=== PATIENT | female | born 1980 | race Caucasian/White ===

== ENCOUNTER 2019-06-27 00:49 | Inpatient (IN) | payer MEDICAID ==
[~2019-06-27] VITALS: Ht 144.8 cm; Wt 58.6 kg
[~2019-06-27 00:49] MED LIST: CLOP75TA35 PO; HYDR-4383 PO
--- NOTE | 2019-06-27 01:53 | NUR ---
PATIENT STATING THAT SHE WAS SEEN AT [facility] IN [facility] FOR ABCESS ON POSTERIOR OF LEFT THIGH, AND RECEIVED ABX AT THAT TIME WHICH SHE FINISHED "LAST NIGHT" THEN LATER STATED THAT THE WOUND WAS NOT TREATED BY ANYBODY AND THAT THE ABX CAME FROM A FRIEND. "A BLUE ONE AND A GREEN ONE"
[2019-06-27 02:10] LABS: CLARITY,URINE SLIGHTLY CLOUDY (Clear); COLOR,URINE YELLOW (Yellow); GLUCOSE, URINE NEGATIVE (Neg); KETONES,URINE NEGATIVE (Neg); LEUKOCYTE ESTERASE ,URINE NEGATIVE (Neg); NITRITES, URINE NEGATIVE (Neg); OCCULT BLOOD,URINE MODERATE (Neg); PROTEIN,URINE 100 mg/dl (Neg); UROBILINOGEN,URINE 0.2 E.U/dL (0.2-1.0)
[2019-06-27 02:11] LABS: URINE HCG NEGATIVE (NEG)
[2019-06-27 02:17] LABS: ALANINE AMINOTRANSFERASE 31 U/L (12-78); ALBUMIN 3.2 G/DL (3.4-5.0); ALBUMIN/GLOBULIN RATIO 0.6 (1.1-1.5); ALKALINE PHOSPHATASE 120 IU/L (46-116); ANION GAP 7 (8-16); ASPARTATE AMINO TRANSFERASE 52 U/L (10-37); BILIRUBIN,TOTAL 0.4 MG/DL (0.1-1.0); BLOOD UREA NITROGEN 7 MG/DL (7-18); BUN/CREATININE RATIO 9.3 (6.6-38.0); CALCIUM 8.2 MG/DL (8.5-10.1); CHLORIDE 102 MMOL/L (99-107); CREATININE 0.75 MG/DL (0.40-0.90); GLUCOSE 106 MG/DL (70-104); SODIUM 135 MMOL/L (135-145); TOTAL CARBON DIOXIDE 25.6 MMOL/L (24-32); TOTAL PROTEIN 8.5 G/DL (6.4-8.2); eGFR 87 ML/MIN
[2019-06-27 02:22] LABS: UA COLLECTION TYPE CLN CATCH MIDSTREAM
[2019-06-27] MEDS ORDERED: potassium Cl 20 mEq SR tablet PO STA (02:24)
[2019-06-27 02:25] LABS: BACTERIA,URINE NONE SEEN /HPF (Neg); RBC,URINE 0-2 /HPF (0-2); SQUAMOUS EPITHELIAL CELL,UR MODERATE /LPF (FEW); WBC,URINE 0-4 /HPF (0-4)
[2019-06-27 02:37] LABS: LIPASE 3203 U/L (73-393)
[2019-06-27] MEDS ORDERED: ondansetron/PF 4mg/2ml inj IV PRN ×2 (03:05→04:20)
[2019-06-27] MEDS ORDERED: TETanus/Pertussis (Acell)/Diphther VAC/PF (Tdap-Adult) 0.5ml syringe IMVAC ONE (03:05)
[2019-06-27] MEDS ORDERED: normal saline 1000ML IV soln IVB ONE (03:05)
[2019-06-27] MEDS: morphine 4 MG/ML inj SYRINge IV PRN ×2 (03:25→05:00)
[2019-06-27 03:26] LABS: CHOL/HDL RATIO 2.6 (0.00-4.99); CHOLESTEROL 218 MG/DL (0-200); ETHANOL 0.016 GM/DL (0.0-0.010); HDL CHOLESTEROL 85 MG/DL (35-60); LDL CHOLESTEROL 115 MG/DL (50-100); TRIGLYCERIDES 73 MG/DL (20-135)
[2019-06-27 03:39] LABS: BASOPHILS # (AUTO) 0.1 X10'3 (0-0.2); BASOPHILS % (AUTO) 0.7 % (0-1); EOSINOPHILS # (AUTO) 0.3 X10'3 (0-0.9); EOSINOPHILS % (AUTO) 1.6 % (0-6); HEMATOCRIT 40.9 % (35.0-45.0); HEMOGLOBIN 13.8 g/dl (12.0-16.0); LYMPHOCYTES # (AUTO) 1.7 X10'3 (1.1-4.8); LYMPHOCYTES % (AUTO) 10.7 % (21-51); MEAN CORPUSCULAR HEMOGLOBIN 34.7 PG (27.0-31.0); MEAN CORPUSCULAR HGB CONC 33.6 g/dL (33.0-36.5); MEAN PLATELET VOLUME 6.6 FL (7.4-10.4); MONOCYTES # (AUTO) 1.6 X10'3 (0-0.9); MONOCYTES % (AUTO) 10.3 % (2-12); NEUTROPHILS # (AUTO) 12.1 X10'3 (1.8-7.7); NEUTROPHILS % (AUTO) 76.7 % (42-75); PLATELET COUNT 375 X10'3 (140-440); RED BLOOD COUNT 3.97 X10'6 (4.20-5.60); RED CELL DISTRIBUTION WIDTH 14.5 % (11.5-14.5); WHITE BLOOD COUNT 15.8 X10'3 (4.5-11.0)
[2019-06-27] MEDS ORDERED: vancomycin/NS 1 GM ADD-VANTAGE 250 ML IV ONE (03:45)
[2019-06-27] MEDS ORDERED: CefTRIAXone 2gm/D5W 50ml 50 ML IV ONE (03:45)
[2019-06-27] MEDS ORDERED: LISI-600 PO (04:07)
[2019-06-27] MEDS ORDERED: ASPI-1265 PO (04:07)
[2019-06-27] MEDS ORDERED: magnesium Cl slow-release 64mg tablet PO PRN (04:20)
[2019-06-27] MEDS ORDERED: potassium Cl 20 mEq SR tablet PO PRN ×2 (04:20)
[2019-06-27] MEDS ORDERED: potassium CL 10mEq/100ml bag 100 ML IV PRN (04:20)
[2019-06-27] MEDS ORDERED: morphine 2 MG/ML inj. syringe IV PRN (04:20)
[2019-06-27] MEDS ORDERED: magnesium 4gm in 100ml NS 100 ML IV PRN (04:20)
[2019-06-27] MEDS ORDERED: magnesium 2GM in 50ml NS 50 ML IV PRN (04:20)
[2019-06-27] MEDS: normal saline 1000ml 1,000 ML IV SCH ×2 (04:29→20:59)
[2019-06-27] MEDS ORDERED: LORazepam 2 mg/ml vial IV PRN (05:25)
[2019-06-27] MEDS ORDERED: haloperidol lactate 5mg/ml inj IM PRN (05:25)
[2019-06-27] MEDS ORDERED: thiamine inj. 100 MG in normal saline 100ml IV soln 100 ML IV ONE (05:25)
[2019-06-27] MEDS ORDERED: haloperidol 5mg tablet PO PRN (05:25)
--- NOTE | 2019-06-27 06:55 | NUR ---
Received report from ZHENG Berrios in ED. patient to arrive to room 354A
--- NOTE | 2019-06-27 07:09 | NUR ---
TC REPORT TO FLOOR AND TAKEN TO INPATIENT ROOM PER JENN.
[2019-06-27 08:00] VITALS: BP 162/111
[2019-06-27] MEDS: K and/or MAG REPLACEMENT MC SCH ×2 (08:00→22:08)
[2019-06-27] MEDS: enoxaparin 40mg/0.4ml syringe SQ SCH (08:02)
[2019-06-27] MEDS: clopidogrel 75mg tablet PO SCH (08:02)
[2019-06-27] MEDS: aspirin 81mg tab.chew PO SCH (08:02)
[2019-06-27] MEDS: lisinopril 20mg tablet PO SCH (08:02)
[2019-06-27] MEDS: folic acid 1mg/0.2ml inj IV SCH (08:17)
--- NOTE | 2019-06-27 09:30 | NUR ---
Paged Dr. Alfred regarding pt's high BP and high pain. morphine given, zestril given for pain and BP now 162/111 and HR 104. notified. Orders received.
--- NOTE | 2019-06-27 10:08 | NUR ---
MESSAGE: [facility]. PT IN 354a Mendy Marcelino already had morphine-crying out in pain. anything more for pain? thx
[2019-06-27] MEDS: cloNIDine 0.1 mg tablet PO PRN ×2 (10:14→23:14)
[2019-06-27 10:30] VITALS: BP 157/112
[2019-06-27] MEDS: HYDROmorphone 1 mg/ml syringe IV PRN ×3 (10:32→20:34)
[2019-06-27] MEDS: MVI, adult No.4 with vit. K 10 ML in dextrose 5% water 500ml 500 ML IV SCH ×2 (10:32)
--- NOTE | 2019-06-27 11:20 | NUR ---
Paged Dr. Price regarding this patient's blood pressure. BP still high at 174/100. awaiting further orders.
[2019-06-27] MEDS: potassium CL 10mEq/100ml bag 100 ML IV PRN ×3 (11:38→17:28)
[2019-06-27 12:00] VITALS: BP 154/110
[2019-06-27] MEDS ORDERED: cloNIDine 0.1 MG/24 HOUR patch (7 day patch) TD SCH (12:15)
--- NOTE | 2019-06-27 15:46 | NUR ---
PAGER ID: [phone] MESSAGE: [facility]. Pt Mendy Marcelino-clonidine patch placed, pain medication Dilaudid given and pt's BP now at 157/11 thank you
[2019-06-27] MEDS: VANCOMYCIN 750MG IV in NS 250 ML IV SCH (17:28)
[2019-06-27] MEDS ORDERED: naloxone 0.4 mg/ml inj ONE (18:17)
--- NOTE | 2019-06-27 18:30 | NUR ---
Upon entering pt's room to give bedside report with Tiera Mott RN, found patient lying on R side on the floor, residential under bed unresponsive. Pt's neighbor in [facility] states that she saw the patient in 354A was "standing up and fell flat to the floor, after she heard patient with pill bottle." Pt was moved back into bed and rapid response called. vitals were taken as follows: RR 8, HR 112, BP 172/115, Oxygen saturation 99% on room air. Dr. Alfred notified. Pt's respirations decreased and pt diaphoretic. Narcan given. Patient alert, fighting and thrashing while labor delivery specialist attempting to draw labs. O2 saturation still at 99%. Patient calming down now and states she does not remember falling. Will continue to monitor closely at pt's bedside.
[2019-06-27] MEDS ORDERED: LIDOcaine 2% 10ml TOPICAL JELLY (Urojet) TP ONE (18:40)
--- NOTE | 2019-06-27 18:40 | NUR ---
consulting technical manager here to take the pt for stat head CT scan. Assisted patient into the wheelchair for scan. Pt stable at this time.
[2019-06-27 18:41] LABS: ABG BASE EXCESS -13.1 mmol/L (-2.0-3.0); ABG HCO3 12.5 mmol/L (22.0-26.0); ABG OXYGEN SATURATION 98.1 % (95-98); ABG PCO2 (T) 28.8 mmHg (35.0-45.0); ABG PH (T) 7.255 (7.350-7.450); ABG PO2 (T) 123.5 mmHg (83-108); ALLEN'S TEST POSITIVE; FCOHb 1.2 % (0.5-1.5); FLOW 2 L/min; FMetHb 0.1 % (0.3-1.12); FO2Hb 96.8 % (94-100); PATIENT TEMPERATURE 36.8
[2019-06-27] MEDS ORDERED: sodium bicarbonate (8.4%) inj. 50 MEQ in dextrose 5%-water 1,000 ML IV ONE (18:55)
--- NOTE | 2019-06-27 19:22 | NUR ---
Report given to ZHENG Anderson in PCU. All questions answered and pt to go to room 3024A directly after CT scan.
[2019-06-27 20:00] LABS: BASOPHILS # (AUTO) 0.1 X10'3 (0-0.2); BASOPHILS % (AUTO) 0.3 % (0-1); EOSINOPHILS # (AUTO) 0.1 X10'3 (0-0.9); EOSINOPHILS % (AUTO) 0.4 % (0-6); HEMATOCRIT 41.4 % (35.0-45.0); HEMOGLOBIN 13.8 g/dl (12.0-16.0); LYMPHOCYTES # (AUTO) 0.8 X10'3 (1.1-4.8); LYMPHOCYTES % (AUTO) 4.1 % (21-51); MEAN CORPUSCULAR HEMOGLOBIN 34.3 PG (27.0-31.0); MEAN CORPUSCULAR HGB CONC 33.3 g/dL (33.0-36.5); MONOCYTES # (AUTO) 2.1 X10'3 (0-0.9); MONOCYTES % (AUTO) 10.6 % (2-12); NEUTROPHILS # (AUTO) 16.9 X10'3 (1.8-7.7); NEUTROPHILS % (AUTO) 84.6 % (42-75); PLATELET COUNT 365 X10'3 (140-440); RED BLOOD COUNT 4.02 X10'6 (4.20-5.60); RED CELL DISTRIBUTION WIDTH 14.5 % (11.5-14.5)
[2019-06-27 20:16] LABS: ANION GAP 7 (8-16); BLOOD UREA NITROGEN 8 MG/DL (7-18); BUN/CREATININE RATIO 9.8 (6.6-38.0); CALCIUM 8.7 MG/DL (8.5-10.1); CHLORIDE 103 MMOL/L (99-107); CREATININE 0.82 MG/DL (0.40-0.90); GLUCOSE 94 MG/DL (70-104); SODIUM 134 MMOL/L (135-145); TOTAL CARBON DIOXIDE 24.2 MMOL/L (24-32); TROPONIN I 0.18 NG/ML (0.0-0.05); eGFR 79 ML/MIN
[2019-06-27 20:19] LABS: POTASSIUM 4.5 MMOL/L (3.5-5.1)
--- NOTE | 2019-06-27 20:50 | NUR ---
Patient in room PCU 3023A. I have received report from John CALZADA and had the opportunity to ask questions and assume patient care.
[2019-06-27] MEDS: nicotine 21mg patch - 24 hr TD SCH (21:55)
[2019-06-27 22:00] VITALS: BP 176/108
[2019-06-27 23:26] VITALS: BP 160/94
[2019-06-27] MEDS ORDERED: phenobarbital inj 130 MG in normal saline 100ml IV soln 99 ML IV ONE (23:30)
[2019-06-27] MEDS: Levetiracetam-NS 500mg/100ml 100 ML IV SCH (23:57)
--- NOTE | 2019-06-28 00:11 | NUR ---
3023A - Mendy Chari - Pt had new onset SZ, pt nonresponsive, resistant to suction was foaming, stopped seizing [id number] Matti RN Discussed with Dr. Cabezas patient case. Pt remains intermittently rousable but quickly falls back asleep. Vital signs stable. Pt resistant to suction, pt doesn't follow directions, unable to assess mouth. Minimal bloody drainage in mouth when able to suction. New ordered placed by Dr. Cabezas. Administered Ativan 2mg, Phenobarb and Keppra gtt started. Discussed with Dr. Cabezas changing prn ativan to scheduled for future doses. Will continue to monitor.
[2019-06-28] MEDS: normal saline 1000ml 1,000 ML IV SCH ×2 (00:57→14:00)
[2019-06-28 02:00] VITALS: BP 154/93
[2019-06-28] MEDS: LORazepam 2 mg/ml vial IV SCH ×6 (03:11→20:13)
[2019-06-28] MEDS: HYDROmorphone 1 mg/ml syringe IV PRN ×3 (03:15→17:56)
--- NOTE | 2019-06-28 03:25 | NUR ---
Pt brow furrowed, increased restlessness, attempting to pull at lines and get up out of bed, caressing abdomen and forehead intermittently. Administered dilaudid prn. Will continue to monitor.
[2019-06-28 05:33] LABS: BASOPHILS # (AUTO) 0.1 X10'3 (0-0.2); BASOPHILS % (AUTO) 0.3 % (0-1); EOSINOPHILS # (AUTO) 0.1 X10'3 (0-0.9); EOSINOPHILS % (AUTO) 0.3 % (0-6); HEMATOCRIT 38.6 % (35.0-45.0); HEMOGLOBIN 12.9 g/dl (12.0-16.0); LYMPHOCYTES # (AUTO) 0.9 X10'3 (1.1-4.8); LYMPHOCYTES % (AUTO) 4.7 % (21-51); MEAN CORPUSCULAR HEMOGLOBIN 34.2 PG (27.0-31.0); MEAN CORPUSCULAR HGB CONC 33.4 g/dL (33.0-36.5); MEAN CORPUSCULAR VOLUME 102.3 FL (78-98); MEAN PLATELET VOLUME 7.1 FL (7.4-10.4); MONOCYTES # (AUTO) 1.9 X10'3 (0-0.9); MONOCYTES % (AUTO) 10.3 % (2-12); NEUTROPHILS # (AUTO) 15.7 X10'3 (1.8-7.7); NEUTROPHILS % (AUTO) 84.4 % (42-75); PLATELET COUNT 300 X10'3 (140-440); RED BLOOD COUNT 3.77 X10'6 (4.20-5.60); RED CELL DISTRIBUTION WIDTH 14.5 % (11.5-14.5); WHITE BLOOD COUNT 18.6 X10'3 (4.5-11.0)
[2019-06-28] MEDS: VANCOMYCIN 750MG IV in NS 250 ML IV SCH ×2 (05:48→18:02)
[2019-06-28 06:00] VITALS: BP 139/96
--- NOTE | 2019-06-28 06:16 | NUR ---
Problems reprioritized. Patient report given, questions answered & plan of care reviewed with Isaiah CALZADA.
[2019-06-28 06:49] LABS: ALANINE AMINOTRANSFERASE 34 U/L (12-78); ALBUMIN 2.5 G/DL (3.4-5.0); ALBUMIN/GLOBULIN RATIO 0.5 (1.1-1.5); ALKALINE PHOSPHATASE 187 IU/L (46-116); ANION GAP 8 (8-16); ASPARTATE AMINO TRANSFERASE 75 U/L (10-37); BILIRUBIN,TOTAL 1.1 MG/DL (0.1-1.0); BLOOD UREA NITROGEN 6 MG/DL (7-18); BUN/CREATININE RATIO 9.2 (6.6-38.0); CALCIUM 7.9 MG/DL (8.5-10.1); CHLORIDE 101 MMOL/L (99-107); CREATININE 0.65 MG/DL (0.40-0.90); GLUCOSE 98 MG/DL (70-104); MAGNESIUM 1.6 MG/DL (1.5-2.4); PHOSPHORUS 1.5 MG/DL (2.3-4.5); SODIUM 133 MMOL/L (135-145); TOTAL CARBON DIOXIDE 24.5 MMOL/L (24-32); TOTAL PROTEIN 7.3 G/DL (6.4-8.2); eGFR > 90 ML/MIN
[2019-06-28] MEDS: clopidogrel 75mg tablet PO SCH (08:00)
[2019-06-28] MEDS: K and/or MAG REPLACEMENT MC SCH ×2 (08:00→20:16)
[2019-06-28] MEDS: aspirin 81mg tab.chew PO SCH (08:00)
[2019-06-28] MEDS: lisinopril 20mg tablet PO SCH (08:00)
[2019-06-28] MEDS: thiamine inj. 100 MG in normal saline 100ml IV soln 100 ML IV SCH (08:12)
[2019-06-28] MEDS: Levetiracetam-NS 500mg/100ml 100 ML IV SCH ×2 (08:13→19:52)
[2019-06-28] MEDS: potassium CL 10mEq/100ml bag 100 ML IV PRN ×8 (08:14→22:52)
[2019-06-28] MEDS: enoxaparin 40mg/0.4ml syringe SQ SCH (08:35)
[2019-06-28] MEDS: nicotine 21mg patch - 24 hr TD SCH (08:56)
[2019-06-28] MEDS ORDERED: pneumococcal 23-VAL P-sac vacc 25 mcg/0.5ml vial IMVAC ONE (10:00)
[2019-06-28] MEDS ORDERED: magnesium oxide 400mg tablet PO ONE (10:30)
[2019-06-28] MEDS ORDERED: sodium phosphate inj. 30 MMOL in dextrose 5%-water 250 ML IV ONE (10:30)
[2019-06-28] MEDS ORDERED: normal saline 1000ml 1,000 ML IV ONE (10:50)
[2019-06-28] MEDS ORDERED: labetalol 20mg/4ml (5mg/ml) syringe IV PRN (10:50)
[2019-06-28 11:00] VITALS: BP 119/72
[2019-06-28] MEDS ORDERED: naloxone 0.4 mg/ml inj ONE (11:13)
[2019-06-28] MEDS ORDERED: naloxone 0.4 mg/ml inj IV ONE (11:15)
[2019-06-28] MEDS: MVI, adult No.4 with vit. K 10 ML in dextrose 5% water 500ml 500 ML IV SCH ×2 (12:05)
[2019-06-28] MEDS: folic acid 1mg/0.2ml inj IV SCH (12:34)
--- NOTE | 2019-06-28 12:56 | NUR ---
Non-admined the Ativan for 1200. Patient is too sedated with medication. Dr. Alfred ordered a dose of Narcan just prior to the dose time. Will continue to monitor and treat within MD orders and protocols for this unit.
--- NOTE | 2019-06-28 15:28 | NUR ---
Patient is somulent and very difficult to rouse. Did not give patient the Mag-Ox because she would only wake up with a sternal rub.
--- NOTE | 2019-06-28 16:15 | NUR ---
Problems reprioritized. Patient report given, questions answered & plan of care reviewed with ZHENG Mckay.
--- NOTE | 2019-06-28 16:15 | NUR ---
Patient in room PCU 3023. I have received report from Patience CALZADA and had the opportunity to ask questions and assume patient care.
--- NOTE | 2019-06-28 16:16 | NUR ---
Non-admined the scheduled dose of Ativan, pt is very difficult to arouse. Patient is not agitated.
[2019-06-28 18:00] VITALS: BP 147/95
[2019-06-29] MEDS: LORazepam 2 mg/ml vial IV SCH ×3 (00:44→08:00)
[2019-06-29] MEDS: normal saline 1000ml 1,000 ML IV SCH ×2 (01:09→06:19)
[2019-06-29 02:00] VITALS: BP 148/100
--- NOTE | 2019-06-29 03:09 | NUR ---
Dr. Bustamante notified of pt's BP = 148/100, HR of 125. Adviced to give more sedative.
[2019-06-29] MEDS: VANCOMYCIN 750MG IV in NS 250 ML IV SCH ×2 (05:05→19:41)
[2019-06-29] MEDS ORDERED: LORazepam 2 mg/ml vial IV PRN ×2 (05:25→11:00)
[2019-06-29] MEDS ORDERED: LORazepam 1 MG tablet PO PRN (05:25)
--- NOTE | 2019-06-29 06:05 | NUR ---
Problems reprioritized. Patient report given, questions answered & plan of care reviewed with ZHENG Faulkner.
[2019-06-29 06:10] LABS: BASOPHILS % (AUTO) 0.2 % (0-1); EOSINOPHILS # (AUTO) 0.3 X10'3 (0-0.9); EOSINOPHILS % (AUTO) 1.7 % (0-6); HEMATOCRIT 39.5 % (35.0-45.0); LYMPHOCYTES # (AUTO) 1.2 X10'3 (1.1-4.8); LYMPHOCYTES % (AUTO) 6.9 % (21-51); MEAN CORPUSCULAR HEMOGLOBIN 34.3 PG (27.0-31.0); MEAN CORPUSCULAR HGB CONC 32.8 g/dL (33.0-36.5); MEAN CORPUSCULAR VOLUME 104.4 FL (78-98); MEAN PLATELET VOLUME 7.2 FL (7.4-10.4); MONOCYTES % (AUTO) 11.7 % (2-12); NEUTROPHILS # (AUTO) 13.4 X10'3 (1.8-7.7); NEUTROPHILS % (AUTO) 79.5 % (42-75); PLATELET COUNT 248 X10'3 (140-440); RED BLOOD COUNT 3.78 X10'6 (4.20-5.60); RED CELL DISTRIBUTION WIDTH 14.4 % (11.5-14.5); WHITE BLOOD COUNT 16.9 X10'3 (4.5-11.0)
[2019-06-29 06:21] LABS: ALANINE AMINOTRANSFERASE 22 U/L (12-78); ALBUMIN 2.3 G/DL (3.4-5.0); ALBUMIN/GLOBULIN RATIO 0.5 (1.1-1.5); ALKALINE PHOSPHATASE 146 IU/L (46-116); ANION GAP 9 (8-16); ASPARTATE AMINO TRANSFERASE 39 U/L (10-37); BILIRUBIN,TOTAL 0.7 MG/DL (0.1-1.0); BLOOD UREA NITROGEN 3 MG/DL (7-18); BUN/CREATININE RATIO 4.3 (6.6-38.0); CALCIUM 7.8 MG/DL (8.5-10.1); CHLORIDE 106 MMOL/L (99-107); GLUCOSE 57 MG/DL (70-104); LIPASE 1108 U/L (73-393); MAGNESIUM 1.8 MG/DL (1.5-2.4); PHOSPHORUS 2.1 MG/DL (2.3-4.5); POTASSIUM 3.6 MMOL/L (3.5-5.1); SODIUM 138 MMOL/L (135-145); TOTAL CARBON DIOXIDE 23.3 MMOL/L (24-32); TOTAL PROTEIN 6.9 G/DL (6.4-8.2); eGFR > 90 ML/MIN
--- NOTE | 2019-06-29 06:28 | NUR ---
Patient in room U 3023A. I have received report from Dianna CALZADA and had the opportunity to ask questions and assume patient care. Patient laying in bed, eyes closed, no signs of distress.
--- NOTE | 2019-06-29 06:40 | NUR ---
Patient's glucose on lab for AM is 57. Checked FSBS at this time and is 50. Called Dr. Bustamante and notified of glucose, order for D5 1/2NS to run at 70mL/hr. Order read back and verified with MD. Will start fluids and continue to monitor patient.
[2019-06-29 07:00] VITALS: BP 130/88
[2019-06-29 07:52] LABS: URINE AMPHETAMINE SCREEN POSITIVE (Neg); URINE BARBITUATE SCREEN POSITIVE (Neg); URINE BENZODIAZEPINES SCREEN NEGATIVE (Neg); URINE CANNABINOID SCREEN NEGATIVE (Neg); URINE COCAINE SCREEN NEGATIVE (Neg); URINE METHADONE SCREEN NEGATIVE (Neg); URINE OPIATE SCREEN NEGATIVE (Neg); URINE PHENCYCLIDINE SCREEN NEGATIVE (Neg)
[2019-06-29] MEDS: K and/or MAG REPLACEMENT MC SCH ×2 (08:00→20:00)
[2019-06-29] MEDS: dextrose 5%-1/2 normal saline 1,000 ML IV SCH ×2 (08:54→20:11)
[2019-06-29] MEDS: Levetiracetam-NS 500mg/100ml 100 ML IV SCH ×2 (08:55→20:10)
[2019-06-29] MEDS: MVI, adult No.4 with vit. K 10 ML in dextrose 5% water 500ml 500 ML IV SCH ×2 (08:55)
[2019-06-29] MEDS: thiamine inj. 100 MG in normal saline 100ml IV soln 100 ML IV SCH (08:55)
[2019-06-29] MEDS: aspirin 81mg tab.chew PO SCH (09:26)
[2019-06-29] MEDS: enoxaparin 40mg/0.4ml syringe SQ SCH (09:26)
[2019-06-29] MEDS: clopidogrel 75mg tablet PO SCH (09:27)
[2019-06-29] MEDS: HYDROmorphone 1 mg/ml syringe IV PRN (09:27)
[2019-06-29] MEDS: lisinopril 20mg tablet PO SCH (09:27)
[2019-06-29] MEDS: nicotine 21mg patch - 24 hr TD SCH (09:28)
[2019-06-29] MEDS ORDERED: naloxone 0.4 mg/ml inj IV ONE (10:30)
[2019-06-29 11:00] VITALS: BP 147/86
[2019-06-29] MEDS ORDERED: HYDROmorphone inj. 0.5 MG/0.5 ML DISP.SYRIN IV PRN (11:00)
[2019-06-29] MEDS: folic acid 1mg/0.2ml inj IV SCH (11:22)
[2019-06-29] MEDS ORDERED: sodium phosphate inj. 15 MMOL in dextrose 5%-water 250 ML IV ONE (12:50)
[2019-06-29 15:00] VITALS: BP 152/94
[2019-06-29] MEDS ORDERED: VANCOMYCIN LEVEL IV ONE (16:30)
--- NOTE | 2019-06-29 16:45 | NUR ---
Lab unable to draw patient's vanco trough at this time, will attempt later. Paged PICC RN at this time for possible midline placement given patient is difficult IV stick and lab draw.
--- NOTE | 2019-06-29 17:11 | NUR ---
PAGER ID: [phone] MESSAGE: Lucie monaco [phone]. RE Sergey Brooke [phone]. Unable to draw vanco trough, awaiting possible midline. Had 5 doses. Do you want me to hang vanco without lab result? Also patient wants to eat? Thanks!
--- NOTE | 2019-06-29 17:15 | NUR ---
Clarified with Dr. Alfred about vanco dosing, at this time will hold vanco until we can draw trough.
--- NOTE | 2019-06-29 17:34 | NUR ---
PAGER ID: [phone] MESSAGE: Lucie monaco [phone]. Sergey Brooke [id number]. Pt is requesting something for pain, is there anything we can order that will not sedate her? Or okay to give dilaudid? Thanks!
--- NOTE | 2019-06-29 18:44 | NUR ---
Problems reprioritized. Patient report given, questions answered & plan of care reviewed with Kimberly CALZADA. Patient awake, sitting up in bed, asking for food, no signs of distress.
--- NOTE | 2019-06-29 18:46 | NUR ---
Patient in room PCU 3023. I have received report from Lucie Swartz RN and had the opportunity to ask questions and assume patient care.
[2019-06-29] MEDS: HYDROcodone/acetaminophen 10/325mg tab PO PRN ×2 (19:42→23:42)
--- NOTE | 2019-06-29 20:57 | NUR ---
Spoke to pharmacy about 1700 Vanco. AM labs showed vanco trough at 19.4 and pharmacy feels that is a good number. Pharmacist recommends giving the dose.
[2019-06-29 22:00] VITALS: BP 143/90
[2019-06-30 02:00] VITALS: BP 127/73
[2019-06-30] MEDS: HYDROcodone/acetaminophen 10/325mg tab PO PRN ×4 (03:30→21:31)
[2019-06-30 06:00] VITALS: BP 125/80
[2019-06-30 06:03] LABS: BASOPHILS # (AUTO) 0.1 X10'3 (0-0.2); BASOPHILS % (AUTO) 0.6 % (0-1); EOSINOPHILS # (AUTO) 0.7 X10'3 (0-0.9); EOSINOPHILS % (AUTO) 5.4 % (0-6); HEMATOCRIT 31.9 % (35.0-45.0); HEMOGLOBIN 10.9 g/dl (12.0-16.0); LYMPHOCYTES # (AUTO) 1.3 X10'3 (1.1-4.8); LYMPHOCYTES % (AUTO) 10.8 % (21-51); MEAN CORPUSCULAR HEMOGLOBIN 35.5 PG (27.0-31.0); MEAN CORPUSCULAR HGB CONC 34.2 g/dL (33.0-36.5); MEAN PLATELET VOLUME 7.2 FL (7.4-10.4); MONOCYTES # (AUTO) 1.5 X10'3 (0-0.9); MONOCYTES % (AUTO) 12.8 % (2-12); NEUTROPHILS # (AUTO) 8.5 X10'3 (1.8-7.7); NEUTROPHILS % (AUTO) 70.4 % (42-75); PLATELET COUNT 254 X10'3 (140-440); RED BLOOD COUNT 3.07 X10'6 (4.20-5.60); RED CELL DISTRIBUTION WIDTH 14.2 % (11.5-14.5); WHITE BLOOD COUNT 12.1 X10'3 (4.5-11.0)
--- NOTE | 2019-06-30 06:05 | NUR ---
Patient in room PCU 3023. I have received report from Kimberly CALZADA and had the opportunity to ask questions and assume patient care.
[2019-06-30 06:12] LABS: ALANINE AMINOTRANSFERASE 18 U/L (12-78); ALBUMIN 2.1 G/DL (3.4-5.0); ALBUMIN/GLOBULIN RATIO 0.5 (1.1-1.5); ALKALINE PHOSPHATASE 119 IU/L (46-116); ANION GAP 9 (8-16); ASPARTATE AMINO TRANSFERASE 27 U/L (10-37); BILIRUBIN,TOTAL 0.4 MG/DL (0.1-1.0); BLOOD UREA NITROGEN 7 MG/DL (7-18); BUN/CREATININE RATIO 9.2 (6.6-38.0); CALCIUM 7.8 MG/DL (8.5-10.1); CHLORIDE 105 MMOL/L (99-107); CREATININE 0.76 MG/DL (0.40-0.90); GLUCOSE 125 MG/DL (70-104); LIPASE 905 U/L (73-393); MAGNESIUM 1.5 MG/DL (1.5-2.4); PHOSPHORUS 3.2 MG/DL (2.3-4.5); SODIUM 138 MMOL/L (135-145); TOTAL CARBON DIOXIDE 24.1 MMOL/L (24-32); TOTAL PROTEIN 6.6 G/DL (6.4-8.2); eGFR 86 ML/MIN
[2019-06-30 06:18] LABS: POTASSIUM 2.8 MMOL/L (3.5-5.1)
[2019-06-30] MEDS: VANCOMYCIN 750MG IV in NS 250 ML IV SCH (06:46)
[2019-06-30] MEDS ORDERED: potassium Cl 20 mEq SR tablet PO PRN (07:45)
[2019-06-30] MEDS ORDERED: magnesium 4gm in 100ml NS 100 ML IV PRN (07:45)
[2019-06-30] MEDS ORDERED: magnesium Cl slow-release 64mg tablet PO PRN (07:45)
[2019-06-30] MEDS ORDERED: potassium CL 10mEq/100ml bag 100 ML IV PRN (07:45)
[2019-06-30] MEDS: enoxaparin 40mg/0.4ml syringe SQ SCH (07:59)
[2019-06-30] MEDS: clopidogrel 75mg tablet PO SCH (07:59)
[2019-06-30] MEDS: lisinopril 20mg tablet PO SCH (07:59)
[2019-06-30] MEDS: aspirin 81mg tab.chew PO SCH (08:00)
[2019-06-30] MEDS: potassium Cl 20 mEq SR tablet PO PRN ×3 (08:00→17:39)
[2019-06-30] MEDS: MVI, adult No.4 with vit. K 10 ML in dextrose 5% water 500ml 500 ML IV SCH ×2 (08:01)
[2019-06-30] MEDS: thiamine inj. 100 MG in normal saline 100ml IV soln 100 ML IV SCH (08:01)
[2019-06-30] MEDS: Levetiracetam-NS 500mg/100ml 100 ML IV SCH ×2 (08:01→21:16)
[2019-06-30] MEDS: nicotine 21mg patch - 24 hr TD SCH (08:01)
[2019-06-30] MEDS: K and/or MAG REPLACEMENT MC SCH (08:18)
[2019-06-30] MEDS: folic acid 1mg/0.2ml inj IV SCH (09:13)
[2019-06-30] MEDS ORDERED: vancomycin inj 500 MG in normal saline 100ml IV soln 100 ML IV ONE (09:30)
--- NOTE | 2019-06-30 10:25 | NUR ---
WOUND INFECTION EDUCATION PROVIDED BY WOUND [facility] 1. Patient instructed to call their primary doctor, or go the ED immediately if any of the following symptoms occur: * Increased pain in wound * Increase in drainage from the wound * Redness in the skin surrounding the wound * Warmth in the skin surrounding the wound * Bleeding from the wound * Temperature of 101 or greater 2. If any of these occur while in the hospital tell a nurse immediately. Addendum: 06/30/19 at 1025 by Francisco Isaac RN Amended: Links added.
[2019-06-30 11:00] VITALS: BP 121/72
[2019-06-30] MEDS: dextrose 5%-1/2 normal saline 1,000 ML IV SCH (12:42)
[2019-06-30] MEDS ORDERED: VANCOMYCIN LEVEL IV ONE (14:30)
[2019-06-30 15:00] VITALS: BP 139/92
[2019-06-30] MEDS ORDERED: vancomycin/NS 1 GM ADD-VANTAGE 250 ML X 1 DOSE IV SCH (15:00)
[2019-06-30] MEDS: ceFAZolin 1GM/D5W- ADD-VANTAGE 50 ML IV SCH ×2 (15:56→23:51)
--- NOTE | 2019-06-30 17:56 | NUR ---
Pt's bettencourt removed. 10ml of saline removed from balloon. Pt tolerated well
[2019-06-30 18:00] VITALS: BP 145/93
--- NOTE | 2019-06-30 18:15 | NUR ---
Patient in room PCU 3023. I have received report from Jamal CALZADA and had the opportunity to ask questions and assume patient care.
[2019-06-30] MEDS ORDERED: VANCOmycin 1250MG/NS 250ml Bag 250 ML IV SCH (19:00)
[2019-06-30] MEDS: lactobacillus rhamnosus 10,000 MMU CELLS/CAPSULE PO SCH (21:16)
[2019-06-30 22:00] VITALS: BP 167/96
[2019-07-01 02:00] VITALS: BP 156/98
[2019-07-01] MEDS: HYDROcodone/acetaminophen 10/325mg tab PO PRN ×2 (02:38→07:21)
[2019-07-01] MEDS: dextrose 5%-1/2 normal saline 1,000 ML IV SCH (02:42)
[2019-07-01 06:19] LABS: ALANINE AMINOTRANSFERASE 46 U/L (12-78); ALBUMIN 2.3 G/DL (3.4-5.0); ALBUMIN/GLOBULIN RATIO 0.5 (1.1-1.5); ALKALINE PHOSPHATASE 261 IU/L (46-116); ANION GAP 7 (8-16); ASPARTATE AMINO TRANSFERASE 77 U/L (10-37); BILIRUBIN,TOTAL 0.5 MG/DL (0.1-1.0); BLOOD UREA NITROGEN 4 MG/DL (7-18); BUN/CREATININE RATIO 6.5 (6.6-38.0); CALCIUM 8.1 MG/DL (8.5-10.1); CHLORIDE 107 MMOL/L (99-107); CREATININE 0.62 MG/DL (0.40-0.90); GLUCOSE 105 MG/DL (70-104); LIPASE 838 U/L (73-393); MAGNESIUM 1.4 MG/DL (1.5-2.4); PHOSPHORUS 2.9 MG/DL (2.3-4.5); POTASSIUM 3.7 MMOL/L (3.5-5.1); SODIUM 138 MMOL/L (135-145); TOTAL CARBON DIOXIDE 24.3 MMOL/L (24-32); TOTAL PROTEIN 6.8 G/DL (6.4-8.2); eGFR > 90 ML/MIN
[2019-07-01 06:24] LABS: BASOPHILS # (AUTO) 0.1 X10'3 (0-0.2); BASOPHILS % (AUTO) 0.4 % (0-1); EOSINOPHILS # (AUTO) 0.6 X10'3 (0-0.9); EOSINOPHILS % (AUTO) 4.6 % (0-6); HEMATOCRIT 32.8 % (35.0-45.0); HEMOGLOBIN 10.9 g/dl (12.0-16.0); LYMPHOCYTES # (AUTO) 1.2 X10'3 (1.1-4.8); LYMPHOCYTES % (AUTO) 10.1 % (21-51); MEAN CORPUSCULAR HEMOGLOBIN 34.6 PG (27.0-31.0); MEAN CORPUSCULAR HGB CONC 33.2 g/dL (33.0-36.5); MEAN CORPUSCULAR VOLUME 104.1 FL (78-98); MEAN PLATELET VOLUME 7.4 FL (7.4-10.4); MONOCYTES # (AUTO) 1.5 X10'3 (0-0.9); MONOCYTES % (AUTO) 12.2 % (2-12); NEUTROPHILS # (AUTO) 8.9 X10'3 (1.8-7.7); NEUTROPHILS % (AUTO) 72.7 % (42-75); PLATELET COUNT 298 X10'3 (140-440); RED BLOOD COUNT 3.16 X10'6 (4.20-5.60); RED CELL DISTRIBUTION WIDTH 14.1 % (11.5-14.5); WHITE BLOOD COUNT 12.3 X10'3 (4.5-11.0)
--- NOTE | 2019-07-01 06:45 | NUR ---
Problems reprioritized. Patient report given, questions answered & plan of care reviewed with Aliza CALZADA.
[2019-07-01 07:00] VITALS: BP 156/98
--- NOTE | 2019-07-01 07:35 | NUR ---
Patient in room PCU 3023. I have received report from ZHENG Harris and had the opportunity to ask questions and assume patient care.
[2019-07-01] MEDS: K and/or MAG REPLACEMENT MC SCH (08:00)
[2019-07-01] MEDS: Levetiracetam-NS 500mg/100ml 100 ML IV SCH (08:47)
[2019-07-01] MEDS: ceFAZolin 1GM/D5W- ADD-VANTAGE 50 ML IV SCH (08:47)
[2019-07-01] MEDS: clopidogrel 75mg tablet PO SCH (08:47)
[2019-07-01] MEDS: lactobacillus rhamnosus 10,000 MMU CELLS/CAPSULE PO SCH (08:48)
[2019-07-01] MEDS: lisinopril 20mg tablet PO SCH (08:48)
[2019-07-01] MEDS: nicotine 21mg patch - 24 hr TD SCH (08:49)
[2019-07-01] MEDS: aspirin 81mg tab.chew PO SCH (08:49)
[2019-07-01] MEDS: enoxaparin 40mg/0.4ml syringe SQ SCH (08:49)
[2019-07-01] MEDS ORDERED: multivitamins, therapeutics tablet PO SCH (09:00)
[2019-07-01] MEDS ORDERED: thiamine 100mg tablet PO SCH (09:00)
[2019-07-01] MEDS ORDERED: folic acid 1mg tablet PO SCH (09:00)
[2019-07-01] MEDS: cloNIDine 0.1 mg tablet PO PRN (10:27)
[2019-07-01 11:00] VITALS: BP 155/102
--- NOTE | 2019-07-01 13:32 | NUR ---
PAGER ID: [phone] MESSAGE: [id number]: Chari KENDRICK: Pt will be leaving [facility] [phone]
--- NOTE | 2019-07-01 14:01 | NUR ---
Pt left AMA without seeing MD. Signed AMA paperwork. Made pt aware of risks and consequences regarding leaving AMA. Tele monitor removed. PIVs removed, cannula intact. Belongings sent with patient. electronic communications technician transported down to [facility] via wheelchair where pt will be picked up by friend. Addendum: 07/01/19 at 1415 by Aliza Jenkins RN Maria Isabel Eagle with no response.
== END 2019-07-01 14:00 | disposition left against medical advice (07) | DRG 282 ==
LOC: ER 00:49 → ED HOLD 04:31 → SUR 3N 07:13 → PCU 3S 19:20
PROVIDERS: ADMIT Family Medicine; ATTEND Internal Medicine
PROC: 3E0234Z Introduction of Serum, Toxoid and Vaccine into Muscle, Percutaneous Approach (ICD-10-PCS; principal; 2019-06-28)
DX: K85.20 Alcohol induced acute pancreatitis without necrosis or infection (principal); G83.9 Paralytic syndrome, unspecified; I69.351 Hemiplegia and hemiparesis following cerebral infarction affecting right dominant side; L03.116 Cellulitis of left lower limb; E83.39 Other disorders of phosphorus metabolism; E83.42 Hypomagnesemia; R00.0 Tachycardia, unspecified; S71.102A Unspecified open wound, left thigh, initial encounter; E87.6 Hypokalemia; F10.129 Alcohol abuse with intoxication, unspecified; Z53.29 Procedure and treatment not carried out because of patient's decision for other reasons; X58.XXXA Exposure to other specified factors, initial encounter; F15.90 Other stimulant use, unspecified, uncomplicated; I10 Essential (primary) hypertension; I69.320 Aphasia following cerebral infarction; Z79.02 Long term (current) use of antithrombotics/antiplatelets; Z79.82 Long term (current) use of aspirin; Z87.891 Personal history of nicotine dependence; Z90.49 Acquired absence of other specified parts of digestive tract; Z23 Encounter for immunization; Z88.1 Allergy status to other antibiotic agents; Z79.899 Other long term (current) drug therapy; Y93.89 Activity, other specified; Y92.89 Other specified places as the place of occurrence of the external cause; Y99.8 Other external cause status
CPT/HCPCS: 36415; 36600; 70450; 74176; 76937; 80048; 80053; 80061; 80202; 80305; 80320; 81001; 81025; 82803; 82948; 83605; 83690; 83735; 84100; 84132; 84145; 84484; 85018; 85025; 87040; 87070; 87077; 87081; 87186; 90471; 90715; 96365; 96375; 97161; 97530; 99285; G0378; J0690; J0696; J1170; J1650; J1953; J2060; J2270; J2310; J2405; J2560; J3370; J3411; J3480; J3490; J7030; J7050; J7060